=== PATIENT | female | born 2000 | race Caucasian/White ===

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

== ENCOUNTER 2020-05-04 11:37 | Emergency (ER) | payer BC | END 2020-05-04 12:47 | disposition home or self-care (01) | LOC: JVIRT 11:37 | DX: Z20.822 Contact with and (suspected) exposure to COVID-19 (principal) | CPT/HCPCS: 36415; 86769; C9803; G2251-GT; U0003 ==